=== PATIENT | female | born 1965 | race Caucasian/White ===

== ENCOUNTER → 2016-03-16 | Outpatient (CLI) | payer OTHER ==
--- NOTE | 2016-03-16 17:47 | MA ---
Screening Digital Mammogram With iCAD Analysis Clinical Indications: Routine screening. Her maternal grandmother was diagnosed with breast cancer in her 50s. Technique: Standard cephalocaudal projections are obtained. Digital breast tomosynthesis was performe d in the MLO projection with reconstruction at 1.0 mm slice thickness and composite MLO views reconst ructed. This examination is processed by the iCAD computer aided detection system. Comparison: Baseline study; no previous mammograms have been performed. Breast density: Type C: Heterogeneously dense. Findings: CAD was reviewed. No masses, suspicious calcifications or secondary signs of malignancy are seen. Impression: Negative mammogram. BI-RADS 1. Recommendation: Routine mammographic screening in one year as long as physical examination is negativ e in this patient with heterogeneously dense breast parenchyma. [facility] will send a result letter to the patient. Negative mammography should not preclude additional workup of a clinically suspicious finding. The patient's information is entered into a reminder system with a target due date for her next mammo gram.
== END ==
LOC: FIMAGING 13:26
DX: Z12.31 Encounter for screening mammogram for malignant neoplasm of breast (principal); Z80.3 Family history of malignant neoplasm of breast
CPT/HCPCS: G0202

== ENCOUNTER → 2016-03-23 | Outpatient (CLI) | payer OTHER ==
--- NOTE | 2016-03-23 15:09 | US ---
Pelvic Ultrasound (Transabdominal and Endovaginal) with color flow and spectral Doppler History: Dysmenorrhea (M92.6), family history of ovarian neoplasm (Z 80.41), uterine fibroids (D 25.9 ), endocrine disorder (E 34.9). Comparison: No prior studies available. Findings: The pelvis was first examined through a moderately distended bladder from TRANSABDOMINAL approach. UTERUS: Size: 8.7 x 3.2 x 4.9 cm in longitudinal, AP, and transverse projections. Orientation: Anteflexed. Uterine Masses: None seen. Endometrium: IUD is visualized in good position within the endometrial canal.. ADNEXA: No adnexal masses. The ovaries are not visualized. The pelvis was then evaluated from ENDOVAGINAL approach after the bladder was emptied to better evalu ate the uterus and adnexa. UTERUS: Orientation: Anteverted. Masses: Small fibroids identified as follows: Intramural fundal fibroid, 6 mm Pedunculated fibroid right posterior uterine body, 1.4 x 1.6 x 1.3 cm Intramural fibroid left side of uterine body, 1.7 x 1.4 x 1.9 cm. Endometrium: IUD is in good position in the endometrial canal. The visualized endometrial stripe is normal in appearance measuring about 3 mm in thickness. ADNEXA: Normal. Small follicles are seen associated with the right ovary. The left ovary is not posit ively identified. Right ovary size: 1.3 x 1.6 x 1.5 cm Left ovary size: Not visualized. Color flow and spectral Doppler: Normal color flow imaging with normal Doppler waveform involving the right ovary. Free fluid: None. Other findings: None. Impression: 1. IUD in good position within the endometrial canal. 2. Uterine fibroids identified as detailed above. 3. Normal-appearing right ovary. The left ovary could not be positively identified.
== END ==
LOC: FIMAGING 13:45
PROVIDERS: ATTEND Obstetrics & Gynecology Gynecology
DX: D25.9 Leiomyoma of uterus, unspecified (principal); N94.6 Dysmenorrhea, unspecified; E34.9 Endocrine disorder, unspecified; Z80.41 Family history of malignant neoplasm of ovary; Z97.5 Presence of (intrauterine) contraceptive device